=== PATIENT | male | born 1945 | race Caucasian/White ===

== ENCOUNTER 2017-02-20 14:40 | Emergency (ER) | payer OTHER ==
[~2017-02-20 14:40] MED LIST: COQ1030 MG PO; OCUVITE PO; PROAIR HFA IN; VITAMIN C500 M1 PO
--- NOTE | 2017-02-20 15:55 | DIAGNOSTIC IMAGING REPORT ---
PROCEDURE: XR CHEST 1 VIEW INDICATION: CHEST PAIN TECHNIQUE: Single view chest. 1538 hours. COMPARISON: None FINDINGS: Normal cardiomediastinal contour and central vessels. No central venous congestion. Mildly hyperlucent lungs. No consolidation, effusion, or pneumothorax. Intact osseous structures with mild degenerative changes in the acromioclavicular joints. IMPRESSION: 1. No acute process.
--- NOTE | 2017-02-20 16:10 | ED CLINICAL REPORT ---
Clinical Report - Physicians/Mid Levels [facility] [address] [place] [address] 02/20/2017 14:42 Patient: ASIA REEVES Time Seen: 14:54. Arrived- By private vehicle. Historian- patient. CPT: Critical care 30-74 min plus (#[id number]). EKG interpretation (#[id number]). HISTORY OF PRESENT ILLNESS Chief Complaint: CHEST PAIN. It is described as pressure and tightness and it is described as located in the central chest area. At its maximum, severity described as 9 / 10. When seen in the E.D., severity described as 7 / 10. Modifying factors. Not worsened by anything. Not relieved by anything. 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 Onset during light activity. The patient has had difficulty breathing and nausea. No vomiting or diaphoresis. Similar symptoms previously: None. Recent medical care: Not recently seen/assessed. REVIEW OF SYSTEMS No fever, chills, cough, pedal edema or calf pain. No fainting episodes, sore throat, blurred vision, abdominal pain or black stools. No difficulty with urination, skin rash, enlarged lymph nodes or joint pain. All systems otherwise negative, except as recorded above. PAST HISTORY Hyperlipidemia. No history of aortic disease, coronary artery disease, heart disease, lung disease or renal disease. No history of GI disease, congestive heart failure, heart rhythm problems, pulmonary embolism or hypertension. No history of diabetes mellitus. SOCIAL HISTORY Former smoker, end date 1986. No alcohol use or drug use. ADDITIONAL NOTES The nursing notes have been reviewed. PHYSICAL EXAM Vital Signs: 02/20/2017 14:50 BP: 172/107. HR: 75. RR: 16. O2 saturation: 99%. Temp: 98.4 F. Pain level now: 7/10. Appearance: Alert. Anxious. Patient in moderate distress. Eyes: Eyes normal inspection. ENT: Pharynx normal. Neck: Normal inspection. No JVD or carotid bruit. CVS: Normal heart rate and rhythm. Heart sounds normal. Pulses normal. No cardiac murmur. Respiratory: No respiratory distress. Breath sounds normal. Chest nontender. Abdomen: Soft and nontender. Bowel sounds normal. Back: Normal external inspection. Skin: Skin warm. Normal skin color. No rash. Extremities: Extremities exhibit normal ROM. No calf tenderness. No lower extremity edema. Neuro: Oriented X 3. No motor deficit. No sensory deficit. Reflexes normal. LABS, X-RAYS, AND EKG EKG: Normal sinus rhythm. Normal P waves. Normal SANTOSH. Normal QRS complex. Left axis deviation. Non-specific ST segment / T wave abnormalities. Moderate T wave inversion in lead aVL, V1 and V2. Prior EKG unavailable. The study has been interpreted contemporaneously. The study has been independently viewed by me. The EKG appears to be a good tracing. Chest X-ray: No acute disease. Views: AP (portable). Technique: good. The X-rays were independently viewed by me and interpreted contemporaneously by me. Laboratory Tests: CBC w Diff: (RAY: 02/20/2017 15:00) ( [facility] 02/20/2017 15:37) Final results Test Result Flag Units (Reference) WHITE BLOOD COUNT 5.8 K/uL (4.5-11.5) RED BLOOD COUNT 4.99 M/uL (4.50-5.90) HEMOGLOBIN 15.0 gm/dL (13.5-17.5) HEMATOCRIT 44.6 % (41.0-53.0) MEAN CELL VOLUME 89 fL (80-100) MEAN CORPUSCULAR HGB 30 pg (26-34) MEAN CORPUSCULAR HGB CONC 34 g/dL (31-37) RED CELL DISTRIBUTION WIDTH 13.0 % (11.6-14.8) PLATELET COUNT 217 K/uL (150-400) NEUTROPHIL % 59.9 % (50-75) LYMPH % 27.1 % (25-40) MONO % 11.1 % (3-14) EOSINOPHIL % 1.6 % (0-4) BASOPHIL % 0.3 % (0-2) BNP: (RAY: 02/20/2017 15:00) ( [facility] 02/20/2017 16:12) Final results Test Result Flag Units (Reference) B-TYPE NATRIURETIC PEPTIDE 18 pg/ml (5-100) CHEM 13 PANEL: (RAY: 02/20/2017 15:00) ( MsgRcvd 02/20/2017 15:48) Final results Test Result Flag Units (Reference) GLUCOSE 111 H mg/dL (70-110) BUN 19 H mg/dL (7-18) CREATININE 1.0 mg/dL (0.6-1.3) Estimated GFR >60 mL/min Estimated GFR- >60 mL/min Note: Persistent reduction over 3 months in eGFR<60 mL/min/1.73 m2 defines CKD. Patients with eGFR values>=60 mL/min/1.73 m2 may also have CKD if evidence ofpersistent proteinuria. Additional information may be foundat www.kidney.org. SODIUM 137 mmol/L (136-145) POTASSIUM 4.3 mmol/L (3.5-5.1) CHLORIDE 100 mmol/L (98-107) CARBON DIOXIDE 29 mmol/L (21-32) CALCIUM 9.2 mg/dL (8.5-10.1) TOTAL PROTEIN 7.5 g/dL (6.4-8.2) ALBUMIN 3.7 g/dL (3.3-5.0) BILIRUBIN, TOTAL 0.4 mg/dL (0.0-1.0) ALKALINE PHOSPHATASE 101 U/L (46-116) AST (SGOT) 26 U/L (15-37) ALT (SGPT) 31 U/L (12-78) MAGNESIUM 2.0 mg/dL (1.8-2.4) LIPASE 207 U/L (73-393) CPK 239 U/L (24-260) TROPONIN I 0.25 ng/mL (0.00-1.5) TROPONIN REFERENCE RANGE:<0.1 NEGATIVE0.1-1.5 INDETERMINANT>1.5 POSITIVE THYROID STIMULATING HORMONE 1.239 uIU/mL (0.30-3.74) . PROGRESS AND PROCEDURES Course of Care: Guillermina Pt had 487mg of ASA at home. NTG times 3 and pain down to a 5/10. About 7 minutes after the 3rd NTG the patient became hypotensive with a BP of 60. The CP increased to a 10/10 and the patient became SOB. PT was bolused with 1 liter NS and BP recovered to 120 systolic. Pulse came up to 70. CP back to a 7/10. 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 Morphine 2 mg IV when pt recovered his BP. Helped the pain some. CP 4/10. Pt transferred in stable condition. Discussed case with on-call health care provider, ([facility] Duran Minor). Reviewed test results. Agreed upon treatment plan. Health care provider will see patient in hospital. Patient/family counseled. Disposition: Transferred to [facility]. CLINICAL IMPRESSION Acute inferolateral myocardial infarction with ST elevation and elevated markers (STEMI). Aspirin not given due to the reason specified in parentheses below. (Electronically signed by Ashish Sanchez MD 02/21/2017 8:55)
--- NOTE | 2017-02-20 16:10 | ED ORDER SUMMARY ---
..... Patient: ASIA REEVES OrderSheet [facility] VisitID: [id number] [place] [address] 71y, M Registration Date/Time: 02/20/2017 ORDER SHEET Weight: 74.8 kg (stated) Allergies: Sulfa Antibiotics GENERAL ORDERS: Call Out Clerk (Continuous) (14:51 02/20/2017 JSimbeck R.N. per protocol) (15:01 LSullivan R.N.) Pulse oximeter (14:51 02/20/2017 JSimbeck R.N. per protocol) (15:01 LSullivan R.N.) EKG - ER Stat (14:02/20/2017 JSimbeck R.N. per protocol) (14:54 JSimbeck R.N.) Cardiac Panel Stat (15:02/20/2017 LSullivan R.N. per protocol) (Ack 15:24 IJurca ER Tech1) (15:56 LSullivan R.N.) Chest 1V Urgent (15:21 02/20/2017 Angel COLON) (Ack 15:24 IJurca ER Tech1) (15:56 LSullivan R.N.) BNP Urgent (15:02/20/2017 Angel COLON) (Ack 15:24 IJurca ER Tech1) (15:56 LSullivan R.N.) Lipase Urgent (15:02/20/2017 Angel COLON) (Ack 15:24 IJurca ER Tech1) (15:56 LSullivan R.N.) TSH Urgent (15:22 02/20/2017 Angel COLON) (Ack 15:24 IJurca ER Tech1) (15:56 LSullivan R.N.) MEDICATION ORDERS: NitroGLYCERIN SL 0.4 mg (x3 PRN Chest Pain) (15:19 02/20/2017 LSullivan R.N. verbal order read back to Angel COLON) (15:19 LSullivan R.N.) Plavix PO 300 mg (NOW) (15:30 02/20/2017 Angel COLON) (15:56 LSullivan R.N.) IV FLUIDS: IV Saline Lock (15:21 02/20/2017 LSullivan R.N. per protocol) (15:55 LSullivan R.N.) Morphine IV 2 mg (NOW) (15:22 02/20/2017 Angel COLON) (15:53 LSullivan R.N.) Metoprolol IV 5 mg (NOW) (15:22 02/20/2017 Angel COLON) (Cancelled: Patient Left16:36 LSullivan R.N.) Heparin IV : initial bolus 5,000 units, then 1,000 per (NOW); Routine (15:29 02/20/2017 Angel COLON) (15:54 LSullivan R.N.) IV NS with Normal Saline 1 Liter: initial bolus none -, then 1000 mL/hr for X2 (NOW) (15:57 02/20/2017 LSullivan R.N. verbal order read back to Angel COLON) (15:58 LSullivan R.N.) ORDER SHEET NOTES: [Electronically signed by Betsy Kang R.N. (16:38 02/20/2017)] [Electronically signed by Ashish Sanchez MD (08:55 02/21/2017)] [Electronically locked/signed by Betsy Kang R.N. (16:38 02/20/2017)]
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
--- NOTE | 2017-02-20 16:10 | ED CLINICAL REPORT ---
Clinical Report - Physicians/Mid Levels [facility] [address] [place] [address] 02/20/2017 14:42 Patient: ASIA REEVES Time Seen: 14:54. Arrived- By private vehicle. Historian- patient. CPT: Critical care 30-74 min plus (#[id number]). EKG interpretation (#[id number]). HISTORY OF PRESENT ILLNESS Chief Complaint: CHEST PAIN. It is described as pressure and tightness and it is described as located in the central chest area. At its maximum, severity described as 9 / 10. When seen in the E.D., severity described as 7 / 10. Modifying factors. Not worsened by anything. Not relieved by anything. 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 Onset during light activity. The patient has had difficulty breathing and nausea. No vomiting or diaphoresis. Similar symptoms previously: None. Recent medical care: Not recently seen/assessed. REVIEW OF SYSTEMS No fever, chills, cough, pedal edema or calf pain. No fainting episodes, sore throat, blurred vision, abdominal pain or black stools. No difficulty with urination, skin rash, enlarged lymph nodes or joint pain. All systems otherwise negative, except as recorded above. PAST HISTORY Hyperlipidemia. No history of aortic disease, coronary artery disease, heart disease, lung disease or renal disease. No history of GI disease, congestive heart failure, heart rhythm problems, pulmonary embolism or hypertension. No history of diabetes mellitus. SOCIAL HISTORY Former smoker, end date 1986. No alcohol use or drug use. ADDITIONAL NOTES The nursing notes have been reviewed. PHYSICAL EXAM Vital Signs: 02/20/2017 14:50 BP: 172/107. HR: 75. RR: 16. O2 saturation: 99%. Temp: 98.4 F. Pain level now: 7/10. Appearance: Alert. Anxious. Patient in moderate distress. Eyes: Eyes normal inspection. ENT: Pharynx normal. Neck: Normal inspection. No JVD or carotid bruit. CVS: Normal heart rate and rhythm. Heart sounds normal. Pulses normal. No cardiac murmur. Respiratory: No respiratory distress. Breath sounds normal. Chest nontender. Abdomen: Soft and nontender. Bowel sounds normal. Back: Normal external inspection. Skin: Skin warm. Normal skin color. No rash. Extremities: Extremities exhibit normal ROM. No calf tenderness. No lower extremity edema. Neuro: Oriented X 3. No motor deficit. No sensory deficit. Reflexes normal. LABS, X-RAYS, AND EKG EKG: Normal sinus rhythm. Normal P waves. Normal SANTOSH. Normal QRS complex. Left axis deviation. Non-specific ST segment / T wave abnormalities. Moderate T wave inversion in lead aVL, V1 and V2. Prior EKG unavailable. The study has been interpreted contemporaneously. The study has been independently viewed by me. The EKG appears to be a good tracing. Chest X-ray: No acute disease. Views: AP (portable). Technique: good. The X-rays were independently viewed by me and interpreted contemporaneously by me. Laboratory Tests: CBC w Diff: (RAY: 02/20/2017 15:00) ( [facility] 02/20/2017 15:37) Final results Test Result Flag Units (Reference) WHITE BLOOD COUNT 5.8 K/uL (4.5-11.5) RED BLOOD COUNT 4.99 M/uL (4.50-5.90) HEMOGLOBIN 15.0 gm/dL (13.5-17.5) HEMATOCRIT 44.6 % (41.0-53.0) MEAN CELL VOLUME 89 fL (80-100) MEAN CORPUSCULAR HGB 30 pg (26-34) MEAN CORPUSCULAR HGB CONC 34 g/dL (31-37) RED CELL DISTRIBUTION WIDTH 13.0 % (11.6-14.8) PLATELET COUNT 217 K/uL (150-400) NEUTROPHIL % 59.9 % (50-75) LYMPH % 27.1 % (25-40) MONO % 11.1 % (3-14) EOSINOPHIL % 1.6 % (0-4) BASOPHIL % 0.3 % (0-2) BNP: (RAY: 02/20/2017 15:00) ( [facility] 02/20/2017 16:12) Final results Test Result Flag Units (Reference) B-TYPE NATRIURETIC PEPTIDE 18 pg/ml (5-100) CHEM 13 PANEL: (RAY: 02/20/2017 15:00) ( MsgRcvd 02/20/2017 15:48) Final results Test Result Flag Units (Reference) GLUCOSE 111 H mg/dL (70-110) BUN 19 H mg/dL (7-18) CREATININE 1.0 mg/dL (0.6-1.3) Estimated GFR >60 mL/min Estimated GFR- >60 mL/min Note: Persistent reduction over 3 months in eGFR<60 mL/min/1.73 m2 defines CKD. Patients with eGFR values>=60 mL/min/1.73 m2 may also have CKD if evidence ofpersistent proteinuria. Additional information may be foundat www.kidney.org. SODIUM 137 mmol/L (136-145) POTASSIUM 4.3 mmol/L (3.5-5.1) CHLORIDE 100 mmol/L (98-107) CARBON DIOXIDE 29 mmol/L (21-32) CALCIUM 9.2 mg/dL (8.5-10.1) TOTAL PROTEIN 7.5 g/dL (6.4-8.2) ALBUMIN 3.7 g/dL (3.3-5.0) BILIRUBIN, TOTAL 0.4 mg/dL (0.0-1.0) ALKALINE PHOSPHATASE 101 U/L (46-116) AST (SGOT) 26 U/L (15-37) ALT (SGPT) 31 U/L (12-78) MAGNESIUM 2.0 mg/dL (1.8-2.4) LIPASE 207 U/L (73-393) CPK 239 U/L (24-260) TROPONIN I 0.25 ng/mL (0.00-1.5) TROPONIN REFERENCE RANGE:<0.1 NEGATIVE0.1-1.5 INDETERMINANT>1.5 POSITIVE THYROID STIMULATING HORMONE 1.239 uIU/mL (0.30-3.74) . PROGRESS AND PROCEDURES Course of Care: Guillermina Pt had 487mg of ASA at home. NTG times 3 and pain down to a 5/10. About 7 minutes after the 3rd NTG the patient became hypotensive with a BP of 60. The CP increased to a 10/10 and the patient became SOB. PT was bolused with 1 liter NS and BP recovered to 120 systolic. Pulse came up to 70. CP back to a 7/10. Repeat EKG showed STEMI Heparin 5,000 units IV Plavix 300 mg po Discussed with Cardiology and will transfer to the laboratory aide for immediate intervention. Morphine 2 mg IV when pt recovered his BP. Helped the pain some. CP 4/10. Pt transferred in stable condition. Discussed case with on-call health care provider, ([facility] Duran Minor). Reviewed test results. Agreed upon treatment plan. Health care provider will see patient in hospital. Patient/family counseled. Disposition: Transferred to [facility]. CLINICAL IMPRESSION Acute inferolateral myocardial infarction with ST elevation and elevated markers (STEMI). Aspirin not given due to the reason specified in parentheses below. (Electronically signed by Ashish Sanchez MD 02/21/2017 8:55)
--- NOTE | 2017-02-20 16:10 | ED ORDER SUMMARY ---
..... Patient: ASIA REEVES OrderSheet [facility] VisitID: [id number] [place] [address] 71y, M Registration Date/Time: 02/20/2017 ORDER SHEET Weight: 74.8 kg (stated) Allergies: Sulfa Antibiotics GENERAL ORDERS: Home Coordinator (Continuous) (14:51 02/20/2017 JSimbeck R.N. per protocol) (15:01 LSullivan R.N.) Pulse oximeter (14:51 02/20/2017 JSimbeck R.N. per protocol) (15:01 LSullivan R.N.) EKG - ER Stat (14:02/20/2017 JSimbeck R.N. per protocol) (14:54 JSimbeck R.N.) Cardiac Panel Stat (15:02/20/2017 LSullivan R.N. per protocol) (Ack 15:24 IJurca ER Tech1) (15:56 LSullivan R.N.) Chest 1V Urgent (15:21 02/20/2017 Angel COLON) (Ack 15:24 IJurca ER Tech1) (15:56 LSullivan R.N.) BNP Urgent (15:02/20/2017 Angel COLON) (Ack 15:24 IJurca ER Tech1) (15:56 LSullivan R.N.) Lipase Urgent (15:02/20/2017 Angel COLON) (Ack 15:24 IJurca ER Tech1) (15:56 LSullivan R.N.) TSH Urgent (15:22 02/20/2017 Angel COLON) (Ack 15:24 IJurca ER Tech1) (15:56 LSullivan R.N.) MEDICATION ORDERS: NitroGLYCERIN SL 0.4 mg (x3 PRN Chest Pain) (15:19 02/20/2017 LSullivan R.N. verbal order read back to Angel COLON) (15:19 LSullivan R.N.) Plavix PO 300 mg (NOW) (15:30 02/20/2017 Angel COLON) (15:56 LSullivan R.N.) IV FLUIDS: IV Saline Lock (15:21 02/20/2017 LSullivan R.N. per protocol) (15:55 LSullivan R.N.) Morphine IV 2 mg (NOW) (15:22 02/20/2017 Angel COLON) (15:53 LSullivan R.N.) Metoprolol IV 5 mg (NOW) (15:22 02/20/2017 Angel COLON) (Cancelled: Patient Left16:36 LSullivan R.N.) Heparin IV : initial bolus 5,000 units, then 1,000 per (NOW); Routine (15:29 02/20/2017 Angel COLON) (15:54 LSullivan R.N.) IV NS with Normal Saline 1 Liter: initial bolus none -, then 1000 mL/hr for X2 (NOW) (15:57 02/20/2017 LSullivan R.N. verbal order read back to Angel COLON) (15:58 LSullivan R.N.) ORDER SHEET NOTES: [Electronically signed by Betsy Kang R.N. (16:38 02/20/2017)] [Electronically signed by Ashish Sanchez MD (08:55 02/21/2017)] [Electronically locked/signed by Betsy Kang R.N. (16:38 02/20/2017)]
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
--- NOTE | 2017-02-21 08:56 | ED DISCHARGE INSTRUCTIONS ---
Patient: ASIA REEVES General Instructions [facility] VisitID: [id number] [address] [place] [address] 71y, M Registration Date/Time: 02/20/2017 Acute inferolateral myocardial infarction with ST elevation and elevated markers (STEMI). Aspirin not given due to the reason specified in parentheses below. (Electronically signed by Ashish Sanchez MD 02/21/2017 8:55)
--- NOTE | 2017-02-21 08:56 | ED DISCHARGE INSTRUCTIONS ---
Patient: ASIA REEVES General Instructions [facility] VisitID: [id number] [address] [place] [address] 71y, M Registration Date/Time: 02/20/2017 Acute inferolateral myocardial infarction with ST elevation and elevated markers (STEMI). Aspirin not given due to the reason specified in parentheses below. (Electronically signed by Ashish Sanchez MD 02/21/2017 8:55)
--- NOTE | 2017-02-21 08:56 | ED MED RECONCILIATION SUMMARY ---
Patient: ASIA REEVES Medication Reconciliation Report [facility] VisitID: [id number] [address] [place] [address] 71y, M Registration Date/Time: 02/20/2017 Weight: 74.8 kg Height/Length: 72 in. BMI: 19.8 ALLERGIES: Sulfa Antibiotics The patient's Home Medications are listed below: THE FOLLOWING MEDICATIONS NEED TO BE RECONCILED: Albuterol Sulfate HFA Inhalation The source(s) of the original Home Medication information: Not obtained. The following Medications were given to the patient in the Emergency Department: Nitroglycerin [SL] SL 0.4 mg, administered: 02/20/2017 3:04:00 PM Nitroglycerin [SL] SL 0.4 mg, administered: 02/20/2017 3:09:00 PM Nitroglycerin [SL] SL 0.4 mg, administered: 02/20/2017 3:14:00 PM Morphine [IVP] IVP 2 mg, administered: 02/20/2017 3:48:00 PM Heparin [IVP] IVP 5000 unit, administered: 02/20/2017 3:32:00 PM Plavix [PO] PO 300 mg, administered: 02/20/2017 3:40:00 PM IV NS IV Fluids bolus 0, then 1000 mL/hr, administered: 02/20/2017 3:20:00 PM IV NS IV Fluids bolus 0, then 1000 mL/hr, administered: 02/20/2017 3:22:00 PM The following Medications were prescribed to the patient: None.
--- NOTE | 2017-02-21 08:56 | ED MED RECONCILIATION SUMMARY ---
Patient: ASIA REEVES Medication Reconciliation Report [facility] VisitID: [id number] [address] [place] [address] 71y, M Registration Date/Time: 02/20/2017 Weight: 74.8 kg Height/Length: 72 in. BMI: 19.8 ALLERGIES: Sulfa Antibiotics The patient's Home Medications are listed below: THE FOLLOWING MEDICATIONS NEED TO BE RECONCILED: Albuterol Sulfate HFA Inhalation The source(s) of the original Home Medication information: Not obtained. The following Medications were given to the patient in the Emergency Department: Nitroglycerin [SL] SL 0.4 mg, administered: 02/20/2017 3:04:00 PM Nitroglycerin [SL] SL 0.4 mg, administered: 02/20/2017 3:09:00 PM Nitroglycerin [SL] SL 0.4 mg, administered: 02/20/2017 3:14:00 PM Morphine [IVP] IVP 2 mg, administered: 02/20/2017 3:48:00 PM Heparin [IVP] IVP 5000 unit, administered: 02/20/2017 3:32:00 PM Plavix [PO] PO 300 mg, administered: 02/20/2017 3:40:00 PM IV NS IV Fluids bolus 0, then 1000 mL/hr, administered: 02/20/2017 3:20:00 PM IV NS IV Fluids bolus 0, then 1000 mL/hr, administered: 02/20/2017 3:22:00 PM The following Medications were prescribed to the patient: None.
--- NOTE | 2017-02-21 08:56 | ED MAR SUMMARY ---
..... Medication Administration Record [facility] [address] [place] [address] Patient: ASIA REEVES Visit ID: [id number] 71y, M Weight: 74.8 kg Height/Length: 76.5 in BMI: 19.8 ALLERGIES: Sulfa Antibiotics Given 15:04 02/20/2017 Betsy Kang R.N. Medication Administered: NITROGLYCERIN [SL], Dose: 0.4 mg SL. Medication Ordered: NitroGLYCERIN SL 0.4 mg (x3 PRN Chest Pain). Given 15:09 02/20/2017 Betsy Kang R.N. Medication Administered: NITROGLYCERIN [SL], Dose: 0.4 mg SL. Medication Ordered: NitroGLYCERIN SL 0.4 mg (x3 PRN Chest Pain). Given 15:14 02/20/2017 Betsy Kang R.N. Medication Administered: NITROGLYCERIN [SL], Dose: 0.4 mg SL. Medication Ordered: NitroGLYCERIN SL 0.4 mg (x3 PRN Chest Pain). Start 15:20 02/20/2017 Betsy Kang R.N., Stop 15:50 02/20/2017 Betsy Kang R.N. Medication Administered: IV NS (SALINE), Dose: IV Fluids, Rate: 1000 mL/hr, Dispensed: 1000 mL bag, Site: #1 left forearm. Medication Ordered: IV NS with Normal Saline 1 Liter: initial bolus none -, then 1000 mL/hr for X2 (NOW). Start 15:22 02/20/2017 Betsy Kang R.N., Continued Upon Disposition 15:56 02/20/2017 Betsy Kang R.N. Medication Administered: IV NS (SALINE), Dose: IV Fluids, Rate: 1000 mL/hr, Dispensed: 1000 mL bag, Site: #2. Medication Ordered: IV NS with Normal Saline 1 Liter: initial bolus none -, then 1000 mL/hr for X2 (NOW). Given 15:32 02/20/2017 Betsy Kang R.N. Medication Administered: HEPARIN [IVP], Dose: 5000 unit IVP over 1 minute(s), Site: #1 left forearm. Medication Ordered: Heparin IV : initial bolus 5,000 units, then 1,000 per (NOW); Routine. Given 15:40 02/20/2017 Betsy Kang RYen Medication Administered: PLAVIX [PO] (CLOPIDOGREL BISULFATE), Dose: 300 mg PO. Medication Ordered: Plavix PO 300 mg (NOW). Given 15:48 02/20/2017 Betsy Kang, RKaylaN. Medication Administered: MORPHINE [IVP], Dose: 2 mg IVP over 2 minute(s), Site: #1 left forearm. Medication Ordered: Morphine IV 2 mg (NOW).
--- NOTE | 2017-02-21 08:56 | ED MAR SUMMARY ---
..... Medication Administration Record [facility] [address] [place] [address] Patient: ASIA REEVES Visit ID: [id number] 71y, M Weight: 74.8 kg Height/Length: 76.5 in BMI: 19.8 ALLERGIES: Sulfa Antibiotics Given 15:04 02/20/2017 Betsy Kang R.N. Medication Administered: NITROGLYCERIN [SL], Dose: 0.4 mg SL. Medication Ordered: NitroGLYCERIN SL 0.4 mg (x3 PRN Chest Pain). Given 15:09 02/20/2017 Betsy Kang R.N. Medication Administered: NITROGLYCERIN [SL], Dose: 0.4 mg SL. Medication Ordered: NitroGLYCERIN SL 0.4 mg (x3 PRN Chest Pain). Given 15:14 02/20/2017 Betsy Kang R.N. Medication Administered: NITROGLYCERIN [SL], Dose: 0.4 mg SL. Medication Ordered: NitroGLYCERIN SL 0.4 mg (x3 PRN Chest Pain). Start 15:20 02/20/2017 Betsy Kang R.N., Stop 15:50 02/20/2017 Betsy Kang R.N. Medication Administered: IV NS (SALINE), Dose: IV Fluids, Rate: 1000 mL/hr, Dispensed: 1000 mL bag, Site: #1 left forearm. Medication Ordered: IV NS with Normal Saline 1 Liter: initial bolus none -, then 1000 mL/hr for X2 (NOW). Start 15:22 02/20/2017 Betsy Kang R.N., Continued Upon Disposition 15:56 02/20/2017 Betsy Kang R.N. Medication Administered: IV NS (SALINE), Dose: IV Fluids, Rate: 1000 mL/hr, Dispensed: 1000 mL bag, Site: #2. Medication Ordered: IV NS with Normal Saline 1 Liter: initial bolus none -, then 1000 mL/hr for X2 (NOW). Given 15:32 02/20/2017 Betsy Kang R.N. Medication Administered: HEPARIN [IVP], Dose: 5000 unit IVP over 1 minute(s), Site: #1 left forearm. Medication Ordered: Heparin IV : initial bolus 5,000 units, then 1,000 per (NOW); Routine. Given 15:40 02/20/2017 Betsy Kang RYen Medication Administered: PLAVIX [PO] (CLOPIDOGREL BISULFATE), Dose: 300 mg PO. Medication Ordered: Plavix PO 300 mg (NOW). Given 15:48 02/20/2017 Betsy aKng, RKaylaN. Medication Administered: MORPHINE [IVP], Dose: 2 mg IVP over 2 minute(s), Site: #1 left forearm. Medication Ordered: Morphine IV 2 mg (NOW).
== END 2017-02-20 15:56 | disposition short-term general hospital (02) ==
LOC: ED SRH 14:40
DX: I21.19 ST elevation (STEMI) myocardial infarction involving other coronary artery of inferior wall (principal); J45.909 Unspecified asthma, uncomplicated; Z87.891 Personal history of nicotine dependence
CPT/HCPCS: 90100; 90616; 91320; 92235; 92610; 92720; 93140; 95059